=== PATIENT | male | born 2000 | race Asian ===

== ENCOUNTER → 2024-03-29 15:34 | Outpatient (CLI) | payer OTHER, SELFPAY ==
--- NOTE | 2024-03-29 15:36 | DI.RAD.S_ITS ---
PROCEDURE: FL SHOULDER INJECTION MR/CT RT INDICATIONS: shoulder pain COMPARISON: None. TECHNIQUE: The indications, alternatives, benefits, risks, and complications of the procedure were explained to the patient. Written informed consent was obtained and placed in the chart. The shoulder was examined fluoroscopically and a site for needle placement chosen for entry into the glenohumeral joint from an anterior approach. The skin was prepped and draped in a sterile fashion. A spinal needle was inserted into the glenohumeral joint, and a small amount of iodinated contrast media injected to confirm intra-articular placement of the needle tip. This was followed by approximately 14 mL dilute solution of a gadolinium containing MR contrast agent. The needle was removed and a dressing was applied. The patient was given postprocedural instructions and sent to the MR suite for MR imaging. FINDINGS: A single fluoroscopic spot image demonstrates intra-articular location of injected iodinated contrast. IMPRESSION: Successful fluoroscopically guided administration of dilute Gadolinium solution into the right shoulder joint for MR arthrogram. Dictated by: Gurjit ARRIETA Interpreted: Yoshi López MD on 03/29/2024 at 16:27 Transcribed by: ZAIDA on 03/29/2024 at 16:27 Approved by: Yoshi López M.D. on 03/31/2024 at 8:18
--- NOTE | 2024-03-29 15:36 | DI.MRI.S_ITS ---
PROCEDURE: MR SHOULDER RT W CON INDICATIONS: shoulder pain TECHNIQUE: After the administration of 12 mL of dilute intra-articular Gadolinium contrast, oblique coronal T1 and T2 spin echo with fat saturation, oblique sagittal T1 spin echo with and without fat saturation, oblique sagittal T2 fast spin echo with fat saturation, axial T1 spin echo with fat saturation through the shoulder. COMPARISON: None. FINDINGS: Image quality: Excellent. Rotator cuff: The supraspinatus, and the infraspinatus are unremarkable. The teres minor is unremarkable. The subscapularis is intact. No muscle edema or fatty atrophy. Bones and bursae: No significant degenerative change of the acromioclavicular joint. Type 1 acromion. No os acromiale. No subacromial/subdeltoid bursitis. Minimal subchondral cystic changes in the lesser tuberosity and the posterior humeral head, reactive. No acute fracture. No focal chondral defect of the glenohumeral articulation. Capsule and soft tissues: Superior labral tear, extending anteriorly to the anterior inferior labrum. No paralabral cyst. The extra-articular biceps tendon is unremarkable. The intra-articular biceps tendon is unremarkable as well. Large amount intra-articular contrast within the glenohumeral joint. No intra-articular body. IMPRESSION: 1. Intact rotator cuff tendons. 2. Labral tear as described above. Dictated by: Aileen Bonilla M.D. on 03/30/2024 at 10:10 Approved by: Aileen Bonilla M.D. on 03/30/2024 at 10:16
[2024-03-29] MEDS: LIDOCAINE 1% 20 ML INJ (17:15)
== END ==
DX: S43.431A Superior glenoid labrum lesion of right shoulder, initial encounter (principal); M25.511 Pain in right shoulder
CPT/HCPCS: 23350; 73040; 73222; A9579; Q9967